=== PATIENT | female | born 1990 ===

== ENCOUNTER 2025-04-11 10:00 | Day surgery (SDC) | payer OTHER ==
[2025-04-02 11:08] VITALS: BP 122/79
[2025-04-02 11:59] LABS: BASO % 0.8 % (0.1-1.2); EOS # 0.08 (0.04-0.54); EOS % 1.5 % (0.7-7.0); LYMPH # 1.10 (1.18-3.74); LYMPH % 21.0 % (19.3-53.1); MEAN PLATELET VOLUME 13.90 fl (9.4-12.4); MONO # 0.35 (0.24-0.82); MONO % 6.7 % (4.7-12.5); NEUT # 3.67 (1.56-6.13); NEUT % 69.8 % (34.0-71.1); RED CELL DISTRIBUTION WIDTH 12.8 % (11.6-14.4)
[2025-04-02 12:05] LABS: URINE APPEARANCE Clear; URINE BILIRRUBIN Negative (NEGATIVE); URINE BLOOD Negative; URINE COLOR Yellow; URINE GLUCOSE Negative (NEGATIVE); URINE KETONE Negative (NEGATIVE); URINE LEUKOCYTE Negative; URINE NITRATE Negative; URINE PROTEIN Negative (NEGATIVE); URINE UROBILINOGEN 0.2 E.U./dl
[2025-04-02 12:06] LABS: URINE BACTERIA 619.0 uL (0.0-1933); URINE EPITHELIAL CELLS 6.7 uL (0.0-38.8); URINE RBC 8.6 uL (0.0-20.8); URINE WBC 5.0 uL (0.0-23.2)
[2025-04-02 12:10] LABS: URINE CAST 0.00 uL (0.0-1.40)
[2025-04-02 12:26] LABS: INR 1.06
[2025-04-02 12:46] LABS: ALT/SGPT 30.0 U/L (12-78); AST/SGOT 22.0 U/L (15-37); BILIRUBIN TOTAL 0.68 mg/dL (0.3-1.2); BUN CREA RATIO 18.0 (7.0-25.0); CREATININE SERUM 0.68 mg/dL (0.55-1.02); GFR 98.46; GLOBULINA 3.5 G/DL (2.4-3.5); GLUCOSE FASTING 90.0 mg/dL (65-100); OSMOLALITY SERUM 281.0 MOSM/KG (275-295); TSH 1.28 uIU/mL (0.358-3.74)
[~2025-04-11 10:00] MED LIST: CEFOXITIN SODIUM 2,000 MG VIAL IV ONE; CEFTRIAXONE SODIUM 2,000 MG VIAL ONE; METRONIDAZOLE/SODIUM CHLORIDE 500 MG/100 ML PIGGYBACK IV ONE; OMEPRAZOLE-BIC1 EAC1 PO
[2025-04-11] MEDS ORDERED: POVIDONE-IODINE 118 ML BOTT TOP ONE (10:25)
[2025-04-11] MEDS ORDERED: PROMETHAZINE HCL 50 MG/ML AMPUL IM ONE (11:45)
[2025-04-11] MEDS ORDERED: MORPHINE SULFATE 4 MG/ML VIAL IV PRN (11:45)
[2025-04-11] MEDS ORDERED: AVIDOXY100 MG PO (11:53)
[2025-04-11] MEDS ORDERED: NAPR500T14 PO (11:53)
== END 2025-04-11 17:10 | disposition home or self-care (01) ==
LOC: CIR.AMB 10:00
PROVIDERS: ATTEND Obstetrics & Gynecology
DX: T83.89XA Other specified complication of genitourinary prosthetic devices, implants and grafts, initial encounter (principal); Z18.9 Retained foreign body fragments, unspecified material